=== PATIENT | male | born 1950 | race Caucasian/White ===

== ENCOUNTER 2019-06-23 10:39 | Day surgery (SDC) | payer MEDICARE, SELFPAY ==
[2019-06-23] VITALS (7 sets, daily range): BP systolic 105–128; BP diastolic 53–73; PULSE 48–59; RESP 6–20; TEMP 36.3–36.8; O2SAT 95–98
--- NOTE | 2019-06-23 | DI.RAD.S_ITS ---
PROCEDURE: XR KUB INDICATIONS: RIGHT URETAL STENT TECHNIQUE: One view of the abdomen acquired. COMPARISON: None. FINDINGS: Spot fluoroscopic intraoperative images demonstrating partially visualized right ureteral stent Dictated by: Denny Franklin M.D. on 06/23/2019 at 16:53 Approved by: Denny Franklin M.D. on 06/23/2019 at 16:53
[2019-06-23] MEDS: GABAPENTIN 300 MG CAPSULE PO (11:28)
[2019-06-23] MEDS: ACETAMINOPHEN 325 MG TABLET 975 MG PO (11:28)
[2019-06-23] MEDS: LACTATED RINGERS 1,000 ML 42 ML IV (11:29)
--- NOTE | 2019-06-23 12:26 | PM.PREOP ---
Pre-operative Note Interval Note History & Physical reviewed/Exam performed by Physician: Yes Changes to H&P: No H&P completed within 30 days and has changed as indicated here:: History and physical examination on file.
[2019-06-23] MEDS: CEFAZOLIN 2 GM/100 ML FROZ.PIGGY IV (13:01)
--- NOTE | 2019-06-23 13:58 | SUR.OPER ---
Lithotomy on padded OR bed, head on pillow, arms secured on padded arm boards at <90 degrees abduction. Legs secured in padded yellow fins stirrups.
--- NOTE | 2019-06-23 14:50 | SUR.PHASEI ---
Patient woke easily. Alert and oriented.
--- NOTE | 2019-06-23 14:54 | SUR.PHASEI ---
Zarate necklace in place.
--- NOTE | 2019-06-23 15:00 | PM.OP.1 ---
Operative Date/Time/Diagnoses Date of procedure: 06/23/19 Time of procedure: 15:00 Pre-op diagnosis: 6 x 8 mm right distal ureteral calculus Intractable right renal colic Post-op diagnosis: same Procedure & Clinicians Procedure: Cystoscopy and right ureteroscopic laser lithotripsy Cystoscopy and placement right ureteral stent Same procedure as scheduled: Yes Indications: 6 x 8 mm right distal ureteral calculus Surgeon: Georgette Zimmerman Click Yes if Unassisted: Yes Anesthesia Type: General Operative Notes Findings: Obstructing right distal ureteral calculus. Urethra is normal caliber. External sphincter coapted. 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 Bladder 1 to 2+ trabeculation and normal ureteral orifices bilaterally. There is circumferential impingement of the bladder neck and moderate intravesical protrusion of the median lobe of the prostate. Closure Type: not applicable Specimen(s): other (Laser stone fragments obtained from right distal ureter) Applied: other (5 [place] by 24 cm ureteral stent) Estimated Blood Loss (mL): 0 Blood products transfused: none Tourniquet time (min): 0 Procedure in detail: The patient was positioned in supine and administered general anesthesia. He was then repositioned in the semi lithotomy in the lower abdomen genitalia and groin were then prepped and draped in sterile fashion. The 22 [place] panendoscope was then passed and a little lower urinary tract with the findings as described above. A 0.35 guidewire was then advanced into the right ureteral orifice under direct fluoroscopic guidance over this a 15 [place] by 6 cm balloon dilating catheter was positioned across the right ureteral vesicle junction and inflated to 18 atmospheres for a period of time 5 minutes. The balloon was then deflated and backloaded off the wire the matos endoscope was backloaded off the wire the semi rigid ureteral scope was then prepared and. It was then advanced into the lower urinary tract and then into the right distal ureter where the index calculus was encountered. A 272 micron laser fiber was selected the patient and all operating room personnel were fitted with laser safety eyewear. Laser lithotripsy was then commenced with excellent subsequent stone fragmentation. The of the vast majority of of his stone fragments were irrigated and hydrostatic we removed from the ureteral lumen proper the ureteroscope was then removed. The panendoscope was then front loaded on the guidewire and and over this a 5 [place] by 24 cm ureteral double-J stent was advanced. It was positioned under direct and fluoroscopic guidance satisfactorily. A retrieval line was left attached. The bladder was then drained completely and all instrumentation was removed a final time. Patient was then repositioned in supine was awakened and then transferred to the [facility] and transported to recovery in stable condition. Complications: none Post-operative Condition: stable Disposition: PACU Plan for aftercare: 1. Ureteral stent removal in my office in 5-7 days. 2. Schedule KUB and metabolic stone risk evaluation with office visit in 6-8 weeks.
== END 2019-06-23 15:30 | disposition home or self-care (01) ==
PROVIDERS: PCP Physician Assistant Medical; Referring Provider Specialist; Visit Provider Specialist
PROC: (CPT 52356; principal; 2019-06-23 12:15)
DX: N20.1 Calculus of ureter (principal); N40.0 Benign prostatic hyperplasia without lower urinary tract symptoms
CPT/HCPCS: 52356; 74018; 76000; 82365; J0690; J1100; J1885; J2405; J2704